=== PATIENT | female | born 1985 | race Caucasian/White ===

== ENCOUNTER 2016-10-09 | Inpatient (IN) | payer OTHER ==
[~2016-10-09] MED LIST: KEPPRA750 MG; SEROQUEL; TRILEPTAL
--- NOTE | ~2016-10-09 | PN ---
Unit #: [id number] #: [id number] Patient: BRO MYRICK [id number] [facility] [address] [place] [address] [id number] MR#: [id number] NAME: BRO MYRICK ROOM: P264 Age: 31 Sex: F Admission Date: 10/09/2016 : 1985 Attending Physician: Mahamed Spangler M.D. Admitting Physician: Mahamed Spangler M.D. Primary Care Physician: Primary Care Physician Brielle DUKES NOTES DATE OF SERVICE: 10/12/2016 SUBJECTIVE Ms. Myrick is a 31-year-old white female with mood disorder, who was seen today and chart was reviewed and case was discussed with the staff. She appears to be doing much better and has been calmer and cooperative with treatment recommendations and has been taking medications and tolerating them fairly well with no reported side effects. MENTAL STATUS EXAMINATION Young white female who was casually dressed with a fair personal hygiene and appears to be in no acute distress or discomfort. She was awake and alert on interaction with intact orientation. Her mood was anxious with a congruent affect. She denies any suicidal or homicidal ideations. Her insight and judgment remain slightly impaired. TREATMENT PLAN 1. We will continue on her current medications and treatment protocol. We will monitor her response to medication and make further adjustments as needed. 2. We will continue to follow up. Dictated by... Mirza Cerda/mohan TD: 10/14/2016 01:55 JOB #: [id number] JACKELIN PROGRESS NOTES Page 1 of 1 X Mahamed Spangler MD PROGRESS NOTE
--- NOTE | ~2016-10-09 | PA ---
Unit #: [id number] #: [id number] Patient: BRO MYRICK [id number] [facility] [address] [place] [address] [id number] MR#: [id number] NAME: BRO MYRICK ROOM: P264 Age: 31 Sex: F Admission Date: 10/09/2016 : 1985 Date of Assessment: 10/09/2016 Attending Physician: Mahamed Spangler M.D. Admitting Physician: Mahamed Spangler M.D. Primary Care Physician: Primary Care Physician No PSYCHIATRIC ASSESSMENT IDENTIFYING DATA Ms. Myrick is a 31-year-old, single, white female, who is a resident of [place], [place], and was self-referred to the hospital on a voluntary basis. CHIEF COMPLAINT "I feel like I'm a danger to myself." HISTORY OF PRESENT ILLNESS Ms. Myrick is a 31-year-old white female with a history of mood disorder, who apparently called crisis intervention team and stated that she feels like she is a danger to herself and [facility] because she stated that she was feeling suicidal and she wanted to come to the hospital and that she is suicidal and reports that she has a history of seizures and that she is in pain and goes to [facility]. The last time she went there was a couple of weeks ago and reports that she cannot go on like this and though she denied any homicidal ideation, she was seen to be very depressed, disorganized and danger to self. Reports that if she keeps going through this pain, then she will try to hurt herself or kill herself and reports that it is a psychological pain rather than physical pain and that her parents gave up their rights and it has affected her mentally and reports depression and anxiety, and that she is compliant with the medication and does not feel the medication has been working as she reports poor sleep and poor appetite and feelings of hopelessness and helplessness, and suicidal ideations and as such, recommendation for inpatient level of care for safety and stabilization was made and the patient was transferred to us. SUBSTANCE ABUSE HISTORY The patient denies any alcohol and drug abuse. PAST PSYCHIATRIC HISTORY The patient has had a history of ongoing outpatient psychiatric treatment at [facility], and review of the medical records indicate that she has been diagnosed and treated for mood disorder and psychosis and is currently on a combination of Zoloft, BuSpar and Zyprexa and she reports that she has been taking the medications regularly, but has not been able to show therapeutic response to medications. PAST MEDICAL HISTORY Significant for genital herpes and seizure disorder. ALLERGIES Unit #: [id number] #: [id number] Patient: BRO MYRICK No known medication allergies. PERSONAL AND SOCIAL HISTORY A 31-year-old white female, who reports that she is single, unemployed, and lives at home with her brother and has fairly decent social support system. MENTAL STATUS EXAMINATION Young white female, who was casually dressed with fair personal hygiene, appears to be in no acute distress or discomfort. She was awake and alert on interaction with intact orientation to time, place, and person. Her mood was anxious and depressed with a congruent affect. Her speech was slow and restricted in content. She reports having suicidal ideations, but denies any homicidal ideations, and also denies any auditory or visual hallucinations. Her insight and judgment remain significantly impaired. DIAGNOSTIC IMPRESSION Psychiatric: Major depressive disorder, recurrent, moderate, with psychosis. Medical: Seizure disorder, genital herpes. Stressors: Moderate psychosocial stressors. TREATMENT PLAN 1. The patient has presented with a history of mood disorder and psychosis and has been decompensating and will need inpatient hospitalization for safety and stabilization. We will start her back on her home medications. We will adjust the medications and monitor response. 2. Supportive therapy was provided to the patient. 3. Safe, structured, and nourishing environment will be provided. ESTIMATED LENGTH OF STAY 5 to 7 days. ABILITY TO HELP SELF Limited. WILLINGNESS TO HELP SELF The patient appears to be willing to help self. STRENGTHS 1. Communicative. 2. Cooperative. PROBLEMS 1. Chronic dysphoric symptoms. 2. Poor social support system. DISCHARGE CRITERIA This will be contingent upon the patient's ability to show resolution of her depression and psychosis and her ability to stay safe to herself, particularly after discharge from the hospital. Dictated by... Mahamed Spangler M.D. Unit #: [id number] #: [id number] Patient: BRO MYRICK IAA/modl TD: 10/09/2016 08:02 JOB #: [id number] PSYCHIATRIC ASSESSMENT Page 1 of 1 X Mahamed Spangler MD PSYCHIATRIC ASSESSMENT
--- NOTE | ~2016-10-09 | HP ---
Unit #: [id number] #: [id number] Patient: RADHA MANZANO [id number] [place] [address] [id number] MR#: [id number] NAME: RADHA MANZANO. ROOM: P264 Age: 31 Sex: F Admission Date: 10/09/2016 : 1985 Attending Physician: Mahamed Spangler M.D. Admitting Physician: Mahamed Spangler M.D. Primary Care Physician: Primary Care Physician No HISTORY AND PHYSICAL HISTORY OF PRESENT ILLNESS Radha is a 31 year old admitted to [address] [place] [address] with depression and verbalizing wanting to hurt herself. PAST MEDICAL HISTORY 1. Seizure disorder. 2. Obesity. PAST SURGICAL HISTORY Nothing reported. ALLERGIES No known drug allergies. SOCIAL HISTORY She denies cigarettes, alcohol and illicit drug use. FAMILY HISTORY Medically noncontributory. REVIEW OF SYSTEMS CONSTITUTIONAL: No fever or chills. HEENT: Denies any sore throat, ear pain or runny nose. CARDIOVASCULAR: Denies chest pain, irregular heart rhythm or palpitations. CHEST: Denies shortness of breath or cough. No hemoptysis. GASTROINTESTINAL: Denies nausea, vomiting, diarrhea or chronic constipation. ENDOCRINE: Denies history of increased thirst or urination. No recent significant weight loss or gain. GENITOURINARY: Denies dysuria, frequency, or hematuria. SKIN: Denies any rashes. HEMATOLOGIC: Denies history of increased bleeding or bruising. MUSCULOSKELETAL: Denies any hot, swollen joints. No generalized muscle pain. NEUROLOGIC: Denies problems with vision or speech. No frequent, severe headaches. No numbness, tingling or weakness in any extremities. Denies loss of bladder or bowel control. CURRENT MEDICATIONS 1. Tegretol 300 mg daily. 2. Folic acid 1 mg daily. 3. Seroquel 100 mg q.h.s. 4. Trileptal 900 mg q.h.s. Unit #: [id number] #: [id number] Patient: RADHA MANZANO 5. BuSpar 10 mg b.i.d. 6. Keppra 1500 mg b.i.d. 7. Zovirax 400 mg t.i.d. 8. Effexor XR 75 mg daily. 9. Inderal 40 mg t.i.d. p.r.n. 10. Vistaril p.r.n. 11. Milk of Magnesia p.r.n. 12. Maalox p.r.n. 13. Tylenol p.r.n. PHYSICAL EXAMINATION GENERAL: Alert, obese, in no apparent distress. VITAL SIGNS: Blood pressure 110/78, heart rate 80, respirations 16, temperature 98.6. WEIGHT: 210. HEIGHT: 5 feet 6 inches. SKIN: Warm and dry without rash or lesion. HEENT: Normocephalic. TMs not viewed. Oral and nasal passages clear. Conjunctivae clear. PERRLA. EOMs intact. NECK: Supple without lymphadenopathy or thyromegaly. HEART: Regular rate and rhythm without murmur. LUNGS: Clear. ABDOMEN: Soft, nontender. : Not done. EXTREMITIES: No evidence of cyanosis, clubbing or edema. Moves all without focal deficit. NEUROLOGICAL: Grossly within normal limits. Cranial Nerves: II: Visual ann are intact. III, IV AND : Extraocular movements are intact. Pupils are equal, round and reactive to light. V: Facial sensation is grossly normal. VII: Facial movements and expression are normal. VIII: Auditory acuity grossly intact. IX, X: Uvula is midline. Phonation is normal. XI: Patient shrugs shoulders and turns head normally. XII: Tongue protrudes in the midline. Sensory and Motor Function: Sensory and motor sensation is grossly normal. Motor: moves all extremities well. Coordination: Gait is normal. Deep Tendon Reflexes: Intact. IMPRESSION Psychiatric admission. RECOMMENDATIONS PSYCHIATRIC: Per psychiatrist. MEDICAL: See no contraindications to participate in facility's activities. MEDICAL PROGNOSIS Good. MEDICAL CONDITION Stable. Dictated by... Luisana Cavazos P.A.-C. for Romeo Briscoe M.D. Unit #: [id number] #: [id number] Patient: RADHA MANZANO TIERA/toshia TD: 10/09/2016 19:35 JOB #: [id number] HISTORY AND PHYSICAL Page 1 of 1 X Luisana Cavazos X HISTORY AND PHYSICAL
--- NOTE | ~2016-10-09 | DS ---
Unit #: [id number] #: [id number] Patient: BRO MYRICK [id number] [facility] [address] [place] [address] [id number] MR#: [id number] NAME: BRO MYRICK. ROOM: 64 Age: 31 Sex: F Admission Date: 10/09/2016 : 1985 Discharge Date: 10/13/2016 Attending Physician: Mahamed Spangler M.D. Primary Care Physician: Primary Care Physician No DISCHARGE SUMMARY IDENTIFYING DATA Ms. Myrick is a 31-year-old single white female who is a resident of [place], [place] and was self-referred to the hospital on a voluntary basis. DISCHARGE DIAGNOSES Psychiatric: Major depressive disorder, recurrent, moderate, without psychotic features. Medical: Seizure disorder, genital herpes. Stressors: Moderate psychosocial stressors. HISTORY OF PRESENT ILLNESS Please see initial psychiatric evaluation for details. PAST PSYCHIATRIC HISTORY Please see initial psychiatric evaluation for details. PAST MEDICAL HISTORY Please see initial psychiatric evaluation for details. HOSPITAL COURSE The patient [facility] and was oriented to the hospital environment. Routine p.r.n. medications were initiated, and she was started back on her home medications. The medications were adjusted and Effexor and Seroquel were initiated to help with mood and depression and she was closely monitored. She did appear to be poorly motivated towards treatment, rather totally obsessed and focused on wanting to go home and every day was pushing to leave and was trying to minimize on her presentation, however, she was cooperative with treatment recommendations and was taking the medications regularly and was tolerating them fairly well and was able to show a decent therapeutic response, and as such, it was decided that she will be discharged home and will continue treatment on an outpatient basis. DISCHARGE MEDICATIONS Effexor XR 75 mg in the morning for depression and Seroquel 100 mg at bedtime for depression. DISCHARGE CONDITION Stable. PROGNOSIS Fair. Unit #: [id number] #: [id number] Patient: BRO MYRICK Dictated by... Mahamed Spangler M.D. IAA/modl TD: 10/13/2016 07:32 JOB #: [id number] DISCHARGE SUMMARY Page 1 of 1 X Mahamed Spangler MD DISCHARGE SUMMARY
--- NOTE | ~2016-10-09 | PN ---
Unit #: [id number] #: [id number] Patient: BRO MANZANO [id number] [facility] [address] [place] [address] [id number] MR#: [id number] NAME: BRO MANZANO ROOM: P264 Age: 31 Sex: F Admission Date: 10/09/2016 : 1985 Attending Physician: Mahamed Spangler M.D. Admitting Physician: Mirza Cerda PROGRESS NOTES DATE OF SERVICE: 10/11/2016 SUBJECTIVE Ms. Verma is a 31-year-old white female, who was seen today and chart was reviewed and case was discussed with the staff. She has been doing better as she has been sleeping quite a bit as that was one of her main concern and she has been taking medications and tolerating them fairly well with no reported side effects. MENTAL STATUS EXAMINATION An elderly white female who was casually dressed with fair personal hygiene, appears to be in no acute distress or discomfort. She was awake and alert on interaction with intact orientation. Her mood was anxious and depressed with congruent affect. Speech was slow and goal directed. She denies any suicidal or homicidal ideations. Her insight and judgment remain slightly impaired. TREATMENT PLAN 1. We will continue her on her medical medications and treatment protocol. We will monitor her response to medication and make further adjustments as needed. 2. We will continue to follow up. Dictated by... Mirza Cerda/mohan TD: 10/11/2016 23:32 JOB #: [id number] [facility] PROGRESS NOTES Page 1 of 1 X Mahamed Spangler MD PROGRESS NOTE
[2016-10-10 12:18] LABS: BASOPHIL% 0.8 % (0-2.5); EOSINOPHIL# 0.1 X10e3 (0-0.7); EOSINOPHIL% 1.4 % (0.0-7.0); HEMATOCRIT 42.2 % (35.0-45.0); LYMPHOCYTE# 1.5 X10e3 (1.0-3.5); LYMPHOCYTE% 24.7 % (17.0-45.0); MEAN CORPUSCULAR HEMOGLOBIN 28.5 PG (28-34); MEAN CORPUSCULAR HGB CONC 33.2 g/dL (30-36); MEAN PLATELET VOLUME 8.9 FL (6.5-11.5); MONOCYTE# 0.3 X10e3 (0-1.0); MONOCYTE% 4.7 % (3.0-12.0); NEUTROPHIL# 4.1 X10e3 (1.5-7.1); NEUTROPHIL% 68.4 % (40-75); PLATELET COUNT 139 X10e3 (140-420); RED BLOOD COUNT 4.91 X10e (3.90-5.30); RED CELL DISTRIBUTION WIDTH 15.4 % (11.0-15.5); WHITE BLOOD COUNT 5.9 X10e3 (4.0-10.5)
[2016-10-10 12:28] LABS: DIFF IND NO
[2016-10-10 12:34] LABS: THYROID STIMULATING HORMONE 1.45 uIU/ml (0.34-5.60)
[2016-10-10 12:38] LABS: ALBUMIN SERUM 4.2 g/dL (3.5-5.0); BILIRUBIN,TOTAL 0.6 mg/dL (0.2-2.0); CREATININE SERUM 0.9 mg/dL (0.6-1.4); GLOM FILT RATE Estimated 85.9 mL/min (>60); POTASSIUM 3.5 mmol/L (3.5-5.1); PROTEIN TOTAL SERUM 6.8 g/dL (6.0-8.3); TEGRETOL (CARBAMAZEPINE) 3.8 ug/mL (4.0-12.0)
[2016-10-10 12:40] LABS: FREE THYROXIN (T4) 0.63 ng/dL (0.58-1.64)
[2016-10-11 11:41] LABS: URINE APPEARANCE CLEAR; URINE BILIRUBIN NEG (NEG); URINE BLOOD NEG (NEG); URINE COLOR YELLOW; URINE GLUCOSE NEG (NEG); URINE KETONE NEG (NEG); URINE LEUKOCYTE ESTERASE TRACE (NEG); URINE NITRATE NEG (NEG); URINE PH 6.5 (5-8); URINE PROTEIN NEG (NEG); URINE SPECIFIC GRAVITY 1.018 (1.003-1.035); URINE UROBILINOGEN 0.2 MG/DL (NEG)
[2016-10-11 11:45] LABS: URINE BACTERIA AUWI NEG (NEGATIVE); URINE SQUAMOUS EPITHELIAL CELL NONE SEEN /[HPF]; UWBCS1 AUWI 0-2 (0-5)
[2016-10-11 11:53] LABS: AMPHETAMINE NEG (NEG); BARBITURATES NEG (NEG); BENZODIAZEPINES NEG (NEG); COCAINE NEG (NEG); MARIJUANA NEG (NEG); OPIATES NEG (NEG); TRICYCLIC ANTIDEPRESSANTS POS (NEG); U METHADONE NEG (NEG)
== END 2016-10-13 13:45 | disposition home or self-care (01) | DRG 885 ==
LOC: P2L 02:56 → POF 02:56 → P2L 03:00
PROVIDERS: Psychiatry & Neurology Psychiatry
DX: F33.3 Major depressive disorder, recurrent, severe with psychotic symptoms (principal); G40.909 Epilepsy, unspecified, not intractable, without status epilepticus; A60.00 Herpesviral infection of urogenital system, unspecified; E66.9 Obesity, unspecified
CPT/HCPCS: 80053; 80156; 80307; 81003; 84439; 84443; 84703; 85025